=== PATIENT | female | born 1990 | race Caucasian/White ===

== ENCOUNTER 2024-08-24 13:33 | Inpatient (IN) | payer BC, SELFPAY ==
[2024-08-24 11:22] VITALS: BP 133/92
--- NOTE | 2024-08-24 11:57 | ED.SKININJ ---
HPI-Injury
General
Chief Complaint: Bite
Source: patient
Exam Limitations: none
Time Seen by Provider: 08/24/24 11:31
Nursing documentation reviewed up to this point in time: agreed with
History of Present Illness-Injury
Is this injury a work related problem?: Yes
Is pt an associate of [facility]?: No
Initial Injury comments:
34-year-old female type II diabetic works as a riveting machine operator bitten by a cat 3 days ago increased pain and redness of her right hand up and arm no fever or chill had 5 doses of Augmentin with worsening symptoms patient states she is vaccinated for rabies
cat is being watched for 10 days at the clinic for any symptoms of rabies patient is updated on her tetanus
Past History
Past History
ED Past Medical History: HTN, NIDDM and Other (Chronic neck pain ( herniated cervical disc), asthma, RSD, tachycardia); Negative IDDM or MD
ED Past Surgical History: None and Cholecystectomy
Social History
Tobacco: Non-smoker
Alcohol: None
Drug: None
Personal: Single
Living: with family
Employment: Not employed
Family History
Family History: Diabetes
Review of Systems
Review of Systems
All Other Systems: Not applicable
Constitutional: Denies fever or fatigue
Phy Exam
Physical Exam
Physical Exam:
Physical Exam
General: no apparent distress, not acutely ill
Neck: No jaundice
Heart: s1/s2 regular rate and rhythm, no murmur. equal radial pulses.
Lungs: no acute respiratory distress. clear bilaterally
Neuro: alert and oriented. no focal neurological deficits
Skin: no rash
Psychiatric: well kept. interactive and cooperative
Extremities: Redness swelling of the dorsum of the hand streaking up to the forearm decreased flexion
Course
Orders/Labs/Results
Orders:
Orders
08/24/24 11:53
IV Insert/Care/Rem.- Treatment PRN
0.9% Sodium Chloride 1000 ml [Nss] 1,000 ml IV BOLUS
08/24/24 11:54
Vancomycin 1 Gram/200 ml [Vancocin] 1 gram in 200 ml IV NOW
08/24/24 12:06
Ampicillin/Sulbactam 3 G [Unasyn] 3 gm 0.9% Sodium Chloride 100 ml [Nss] 100 ml IV NOW
08/24/24 12:16
Complete Blood Count/With Diff Urgent
Comprehensive Metabolic Panel Urgent
Lactic Acid Q4H
Comment: CANCEL 2nd LACTIC ACID IF 1st LACTIC ACID IS LESS THAN 2
Blood Culture Q30M
TYSON Source: Blood/Venous
Specimen Description:
Blood Culture Q30M
TYSON Source: Blood/Venous
Specimen Description:
08/24/24 12:37
HYDROmorphone [Dilaudid] 0.5 mg IV NOW STA
Wrist, Right 3 Views [CR Wrist - Right Min 3 Views] Urgent
Comment:
Reason For Exam: bite
08/24/24 13:14
Admit/Transfer Patient As Directed
Co-Sign Provider:
Level of Care: Inpatient admission
Assign to:: Medical/Surgical
Physician / Group: [email or web address]
Diagnosis: Infected cat bite wound of Rt hand
Reason for Hospitalization: Infected cat bite wound of Rt hand with spreading cellulitis
Expected length of stay greater than two midnights?: Yes
ELOS- Estimated Length of Stay in days: 3
I certify the patient meets the requirements for IP care: Yes
08/24/24 13:16
Code Status As Directed
Resuscitation Status: Full Code
Abnormal Lab Results
08/24/24
12:16
Hgb 11.1 L g/dL
(12.0-16.0)
Hct 34.5 L %
(37.0-47.0)
MCH 26.1 L pg
(27.0-31.0)
MCHC 32.2 L g/dL
(33.0-37.0)
Glucose 104 H mg/dl
(70-99)
08/24/24 12:16
08/24/24 12:16
Vital Signs
Initial and Last Documented VS:
Initial Vital Signs
Temp Pulse Resp BP Pulse Ox
98.3 F 87 16 133/92 100
08/24/24 11:22 08/24/24 11:22 08/24/24 11:22 08/24/24 11:22 08/24/24 11:22
Last Documented Vital Signs
Temp Pulse Resp BP Pulse Ox
98.3 F 87 16 133/92 100
08/24/24 11:22 08/24/24 11:22 08/24/24 11:22 08/24/24 11:22 08/24/24 11:58
MDM/Problems Addressed
Differential Diagnosis Includes:
Cat bite cellulitis tendon infection abscess
MDM/Problems Addressed:
Cat bite
Chronic conditions affecting care: DM
Acute Exacerbation and/or Progression of Chronic Illness: DM
*Radiology
Radiology exam reviewed: radiology read reviewed
*Pulse Oximetry
SaO2: 100
Oxygen Mode of Delivery: Room air
*Fabric And Textile Factory Worker Interpretation
Rate: Fabric And Textile Factory Worker- N/A
*Critical Care Note
Total Time (30-74mins, 75-104mins- exclusive of procedures): Not Applicable
Update Note
Update Note:
Update looks like an infected cat bite with cellulitis despite appropriate antibiotics will start IV antibiotics with broaden spectrum to cover MRSA, low threshold to admit is also diabetic
ED Attending Note
-
Portions of this chart may have been created with voice recognition software.� Occasional wrong word or��sound alike� substitutions may have occurred due to the inherent limitations of voice recognition software.
Discharge Plan
Departure
Patient Disposition: Admit
Date of Disposition: 08/24/24
Time of Disposition: 12:46
Admit to: Med/Surg
Presentation/result/management discussed w/ accepting MD/DO: Hospitalist
Patient with high blood pressure during this ER visit?: No
Condition: Fair
Discharge Problem:
Pasteurella cellulitis due to cat bite
Interventions
Interventions:
*Risk Screen - Suicide Last Done: 08/24/24 11:49
*General Assessment Last Done: 08/24/24 11:49
*Neglect/Abuse Screening Last Done: 08/24/24 11:49
*ED- Fall Risk Assessment Last Done: 08/24/24 11:49
ED-Skin Assessment Last Done: 08/24/24 11:49
[2024-08-24 12:04] VITALS: BMI 37.8
[2024-08-24] MEDS: NSS 1000 IV (12:16)
[2024-08-24] MEDS: UNASYN IV ×3 (12:22→23:12)
[2024-08-24 12:34] LABS: % Basophils 0.5 % (0-2); % Eosinophils 1.7 % (0-6); % Immature Granulocytes 0.3 % (0-0.5); % Lymphocytes 20.6 % (20.5-51.1); % Neutrophils 69.9 % (42.2-75.2); Absolute Eosinophils 0.1 10^3/uL (0-0.7); Absolute Lymphocytes 1.3 10^3/uL (1.2-3.4); Absolute Monocytes 0.5 10^3/uL (0.1-0.6); Absolute Neutrophils 4.5 10^3/uL (1.4-6.5); Hematocrit 34.5 % (37.0-47.0); Hemoglobin 11.1 g/dL (12.0-16.0); Mean Corp Hgb Conc. 32.2 g/dL (33.0-37.0); Mean Corpuscular Hgb 26.1 pg (27.0-31.0); Nucleated Red Blood Cells % 0 %; Platelet Count 208 10^3/uL (130-400); Red Blood Cell Count 4.26 10^6/uL (4.20-5.40); White Blood Cell Count 6.4 10^3/uL (4.8-10.8)
[2024-08-24 12:44] LABS: Lactic Acid 0.7 mmol/L (0.7-2.0)
[2024-08-24 12:55] LABS: ALT (SGPT) 22 U/L (0-35); AST (SGOT) 22 U/L (14-36); Albumin 4.3 g/dl (3.5-5.0); Alkaline Phosphatase 93 U/L (38-126); Blood Urea Nitrogen 11 mg/dl (7-17); Carbon Dioxide 25 mmol/L (22-30); Chloride 106 mmol/L (98-107); Estimated Creatinine Clearance > 125 ml/min; Glucose 104 mg/dl (70-99); Sodium 139 mmol/L (135-145); Total Bilirubin 0.5 mg/dl (0.2-1.3); Total Protein 7.6 g/dl (6.3-8.2); eGFR > 60.00
[2024-08-24] MEDS: VANCOCIN 200 IV ×3 (12:57→21:27)
[2024-08-24] MEDS: DILAUDID 0.5 MG IV (13:00)
--- NOTE | 2024-08-24 13:02 | HPS.HSE ---
Addendum entered and electronically signed by Lisandro Garcia MD 08/24/24 14:19:
XR Rt hand and wrist
1. Severe cellulitis throughout the dorsal and ulnar side of the right hand.
2. No radiographic evidence for radiopaque soft tissue foreign body, acute osteomyelitis, or acute fracture.
Original Note:
Family Physician
-
Family Physician: Vignesh Yi
Chief Complaint
-
cat bile wound
History of Present Illness
34F diabetic Office Clin Asst HX , Rt hand dominant HTN, , Chronic neck pain ( herniated cervical disc), asthma, RSD, tachycardia pw
bitten by a cat 3 days ago increased pain and redness of her right hand up and arm no fever or chill despite 5 doses of Augmentin. came to ER with worsening symptoms patient states
- vaccinated for rabies cat is being watched for 10 days at the clinic for any symptoms of rabies
- patient is updated on her tetanus
Medical History
Past Medical History
Past Medical History: Reports Asthma, HTN, NIDDM (prediabetic ? ) and Other (Chronic neck pain ( herniated cervical disc), RSD )
Past Surgical History: Reports None
Social History
Tobacco: Non-smoker
Alcohol: Occasional
Employment: Employed ([employer] )
Family History
Family History: Not pertinent
Allergies / Home Medications
Allergies reflects when Allergies were last updated in [employer].
Home Medications with original date entered in [employer]
Allergy/Medication List:
Allergies
Allergy/AdvReac Type Severity Reaction Status Date / Time
loperamide Allergy Severe Shortness Verified 08/24/24 11:26
of Breath
Home Medications
gabapentin 300 mg capsule 300 mg PO TID 09/10/11
tizanidine 2 mg tablet (Zanaflex) 4 mg PO Q8HPRN PRN CRPS 03/21/12
metoprolol succinate 100 mg tablet,extended release 24 hr 100 mg PO DAILY 06/07/12
duloxetine 60 mg capsule,delayed release 60 mg PO HS 08/26/13
nortriptyline 50 mg capsule 50 mg PO HS 08/26/13
omeprazole 40 mg capsule,delayed release 40 mg PO BID 08/26/13
folic acid 1 mg tablet 1 mg PO DAILY 11/30/16
ondansetron 4 mg disintegrating tablet 4 mg PO TIDPRN PRN nausea/vomiting #14 tabs 11/30/16
oxycodone 5 mg tablet 5 mg PO Q4HPRN PRN pain 11/30/16
Review of Systems
-
Constitutional: Reports No Symptoms
EENT: Reports No Symptoms
Respiratory: Reports No Symptoms
Cardiac: Reports No Symptoms
Abdomen/GI: Reports No Symptoms
: Reports No Symptoms
Musculoskeletal: Reports See HPI
Skin: Reports No Symptoms
Neurological: Reports No Symptoms
Endocrine: Reports No Symptoms
Hematologic/Lymphatic: Reports No Symptoms
Psych: Reports No Symptoms
Physical Exam
Vital Signs
Vital Signs
Temp Pulse Resp BP Pulse Ox
98.3 F 87 16 133/92 100
08/24/24 11:22 08/24/24 11:22 08/24/24 11:22 08/24/24 11:22 08/24/24 11:58
Physical Exam
General: Well Developed, Well Nourished and No Apparent Distress
HEENT: NormoCephalic, Moist mucous membranes and Atraumatic
Respiratory: Clear
Cardiac: S1/S2 and Regular Rhythm; No Murmur or Rub
GI: Soft, Non Tender, Non Distended and Normal Bowel Sounds; No Organomegaly
Rectal: Deferred by Provider
Skin: No Rash
Neuro: Nonfocal/grossly intact
Laboratory Results
-
08/24/24 12:16
08/24/24 12:16
Laboratory Results
Lactic Acid Cancelled 08/24/24 16:00
Total Bilirubin 0.5 mg/dl (0.2-1.3) 08/24/24 12:16
AST 22 U/L (14-36) 08/24/24 12:16
ALT 22 U/L (0-35) 08/24/24 12:16
Alkaline Phosphatase 93 U/L (38-126) 08/24/24 12:16
Data Reviewed
-
Diagnostic Radiology: Other (pending hand / wrist XR )
Lab Data: Labs Reviewed by me
Impression/Plan
-
Vital Signs
Temp Pulse Resp BP Pulse Ox
98.3 F 87 16 133/92 100
08/24/24 11:22 08/24/24 11:22 08/24/24 11:22 08/24/24 11:22 08/24/24 11:58
08/24/24
11:22
Temp 98.3 F
Relevant Data
07/21/21 08/24/24
14:49 12:16
WBC 6.4
Hgb 11.1 L 11.1 L
Creatinine 0.6
eGFR > 60.00
Pending Wrist and hand XR
ASSESSMENT & PLAN
Pending Rx reconciliation
Infected Cat bite wound at knuckle of dominant Rt hand
- pending XR Rt hand
- DC Augmentin for now
- s/p first dose on Vancomycin at ER - to be cont
- agree with IV Unasyn alone for now
- f/u BCx and clinical response
- Tylenol PRN
- c/w RADIOLOGY TEACHER Oxycodone
DMT2
- c/w metformin
- add ISS low
Benign HTN
Tachycardia HX
- on RADIOLOGY TEACHER Metoprolol
Depression
- on Duloxetine
Chr neck pain
Herniated cervical disc
HX RSD
- on Gabapentin
- on chr Oxycodone PRN
- on Tizanidine PRN and HS
Class II Obesity with BMI 37
- affect all aspects of life
DVT Px: LMWH
Full code
IP MS
[2024-08-24 14:38] VITALS: BP 128/85; BMI 38.7
--- NOTE | 2024-08-24 15:09 | PHA.VAN.IN ---
Assessment
- Assessment
Renal Function: Appears similar to baseline
Maximum Temperature: 98.3
Minimum Temperature: 97.6
Concomitant Antimicrobials: Ampicillin/Sulbactam
AUC Dosing Plan
- Dosing Variables
Dosing Weight (kg): 102.2
Dosing CrCl (ml/min): 125
Vd coefficient (L/kg): 0.6
- Empiric Dosing
Initial / Loading Dose: Total 2000mg on 08/24
Maintenance Regimen: 1000mg Q8H
Estimated AUC (mcg*h/mL): 477
Estimated Peak (mcg*h/mL): 28.2
Estimated Trough (mcg/ml): 13.2
Estimated Half Life (H): 6.4
- Monitoring
No levels ordered at this time: Consider level in next few days
Pharmacokinetics Vancomycin I
- -
Patient Age: 34
Patient Sex: Female
Vancomycin Day #: 1
Indication: Skin And Soft Tissue
Requesting Provider: Dr. Garcia
Pertinent Antimicrobial Allergies:
none
Height / Weight:
Height 5 ft 4 in
Actual Weight 102.24 kg
Pertinent Past Medical History: Diabetes, Obesity
- Vital Signs / Lab Results
Temp Pulse Resp BP Pulse Ox
97.6 F 77 14 128/85 100
08/24/24 14:38 08/24/24 14:38 08/24/24 14:38 08/24/24 14:38 08/24/24 14:38
Lab Results - Hematology
08/24/24
12:16
WBC 6.4
Lab Results - Chemistry
08/24/24
12:16
BUN 11
Creatinine 0.6
Estimated Creat Clear > 125
Albumin 4.3
08/24/24 08/24/24
12:16 16:00
Lactic Acid 0.7 Cancelled
[2024-08-24 17:17] LABS: Glucose - Point of Care 48 mg/dl (70-99)
[2024-08-24 17:33] LABS: Glucose - Point of Care 89 mg/dl (70-99)
[2024-08-24] MEDS: LOVENOX 40 MG SC (17:44)
[2024-08-24 18:25] LABS: Glucose - Point of Care 142 mg/dl (70-99)
[2024-08-24] MEDS: GLUCOPHAGE XR EXTENDED RELEASE 500 MG PO (18:25)
[2024-08-24] MEDS: TYLENOL 650 MG PO (19:25)
[2024-08-24 19:47] LABS: Glucose - Point of Care 99 mg/dl (70-99)
[2024-08-24] MEDS: ALTACE 2.5 MG PO (21:23)
[2024-08-24] MEDS: ZANAFLEX 4 MG PO (21:24)
[2024-08-24] MEDS: PAMELOR 25 MG PO (21:24)
[2024-08-24] MEDS: NEURONTIN 600 MG PO (21:24)
[2024-08-24] MEDS: FLUSH (NSS) 1 FLUSH IV (21:28)
[2024-08-24 21:35] LABS: Glucose - Point of Care 91 mg/dl (70-99)
[2024-08-24 23:26] VITALS: BP 131/76
[2024-08-25 03:33] LABS: Glucose - Point of Care 104 mg/dl (70-99)
[2024-08-25] MEDS: VANCOCIN 200 IV (05:41)
[2024-08-25] MEDS: UNASYN IV ×4 (05:41→23:33)
[2024-08-25 07:05] VITALS: BP 138/78
[2024-08-25 07:09] LABS: Hematocrit 31.5 % (37.0-47.0); Hemoglobin 10.5 g/dL (12.0-16.0); Mean Corp Hgb Conc. 33.3 g/dL (33.0-37.0); Mean Corpuscular Hgb 26.3 pg (27.0-31.0); Mean Corpuscular Volume 78.9 fL (81.0-99.0); Mean Platelet Volume 10.1 fL (7.4-10.4); Platelet Count 187 10^3/uL (130-400); Red Blood Cell Count 3.99 10^6/uL (4.20-5.40); White Blood Cell Count 5.4 10^3/uL (4.8-10.8)
[2024-08-25] MEDS: TOPROL XL 100 MG PO (07:27)
[2024-08-25] MEDS: TYLENOL 650 MG PO (07:29)
[2024-08-25 07:35] LABS: Blood Urea Nitrogen 7 mg/dl (7-17); Calcium 8.4 mg/dl (8.4-10.2); Carbon Dioxide 21 mmol/L (22-30); Chloride 109 mmol/L (98-107); Estimated Creatinine Clearance > 125 ml/min; Glucose 115 mg/dl (70-99); Potassium 3.8 mmol/L (3.5-5.1); Sodium 138 mmol/L (135-145); eGFR > 60.00
[2024-08-25 07:47] LABS: Glucose - Point of Care 115 mg/dl (70-99)
[2024-08-25 08:49] LABS: Glycohemoglobin (HgbA1c) 5.7 % (4.0-5.6)
--- NOTE | 2024-08-25 11:05 | PHA.VAN.FU ---
Vancomycin Assessment / Plan
- Assessment
Renal Function: Stable
WBC's are: WNL
In the past 24 hrs, patient has been: Afebrile
Concomitant Antimicrobials: ampicillin/sulbactam
- Dosing Plan
Continue: vancomycin 1000 mg q8h - first dose 08/240 (after 2000 mg split LD)
- Monitoring Plan
Peak Level: 08/26 0100 - after 4th maint dose
Trough Level: 08/26 0530
- Follow Up
Pharmacy will continue to follow.
Vancomycin Follow UP
- -
Patient Age: 34
Patient Sex: Female
Vancomycin Day #: 1
Indication: Skin And Soft Tissue
Requesting Provider: Dr. Garcia
Pertinent Antimicrobial Allergies:
none
Height / Weight:
Height 5 ft 4 in
Actual Weight 102.24 kg
Pertinent Past Medical History: Diabetes, Obesity
- Vital Signs / Lab Results
Temp Pulse Resp BP Pulse Ox
98.1 F 58 16 138/78 98
08/25/24 07:05 08/25/24 07:27 08/25/24 07:05 08/25/24 07:27 08/25/24 07:05
Lab Results - Hematology
08/24/24 08/25/24
12:16 06:37
WBC 6.4 5.4
Lab Results - Chemistry
08/24/24 08/25/24
12:16 06:37
BUN 11 7
Creatinine 0.6 0.5 L
Estimated Creat Clear > 125 > 125
Albumin 4.3
08/24/24 08/24/24
12:16 16:00
Lactic Acid 0.7 Cancelled
--- NOTE | 2024-08-25 11:26 | W.PN.HOSP.TC ---
Today's Communication/Plan
-
CT scan of Rt wrist and hand
ID consult
Assessment / Plan
Assessment / Plan
Infected Cat bite wound at knuckle of dominant Rt hand
- will order CT scan of Rt hand and wrist
prior to doing scan, will check serum
- DC Augmentin for now
- s/p first dose on Vancomycin at ER - to be cont
- continue IV Unasyn
consult ID
- f/u BCx and clinical response
- Tylenol PRN
- c/w WORD PROCESSOR Oxycodone
DMT2
- c/w metformin
- add ISS low
Benign HTN
Tachycardia HX
- on WORD PROCESSOR Metoprolol
Depression
- on Duloxetine
Chr neck pain
Herniated cervical disc
HX RSD
- on Gabapentin
- on chr Oxycodone PRN
- on Tizanidine PRN and HS
Class II Obesity with BMI 37
- affect all aspects of life
DVT Px: LMWH
Full code
IP MS
Anticipated Discharge: 24 - 48 hours
Subjective/Interval History
-
Date of Service: August 25, 2024
Rt hand is less swollen since admission, but swelling remains significant
Objective Data
-
Labs:
Laboratory Results
08/25/24
06:37
WBC 5.4
Hgb 10.5 L
Hct 31.5 L
Plt Count 187
Sodium 138
Potassium 3.8
Chloride 109 H
Carbon Dioxide 21 L
BUN 7
Creatinine 0.5 L
Glucose 115 H
Calcium 8.4
Vital Signs:
Vital Signs
Temp Pulse Resp BP Pulse Ox
98.1 F 58 16 138/78 98
08/25/24 07:05 08/25/24 07:27 08/25/24 07:05 08/25/24 07:27 08/25/24 07:05
I&O
08/24/24 08/25/24 08/26/24
06:59 06:59 06:59
Intake Total 780 / 780
Balance 780 / 780
Review of Systems
-
History Source: Patient and Coordinated Provider (Pt examined with JUSTIN Lorenzana in room)
Constitutional: Denies Fever
EENT: Reports No Symptoms Reported
Respiratory: Reports No Symptoms
Cardiac: Reports No Symptoms
Abdomen/GI: Reports No Symptoms
Genitourinary: Reports No Symptoms
Musculoskeletal: Reports Joint Swelling (rt wrist and hand swelling and redness)
Skin: Reports Rash
Physical Exam
-
General: Well Developed, Well Nourished, No Apparent Distress and Morbidly Obese
HEENT: Normocephalic, Atraumatic and Moist Mucous Membranes
Respiratory: Clear to Auscultation; Negative Wheezes, Rales or Rhonchi
Cardiac: Regular Rhythm and S1/S2
Musculoskeletal: Other (rt wrist and hand with swelling and redness)
Skin: Warm and Rash
[2024-08-25 11:54] LABS: Glucose - Point of Care 97 mg/dl (70-99)
--- NOTE | 2024-08-25 12:42 | CM ---
Met with patient to obtain information for assessment. Patient stated that she lives with her family in a split level home, 12 steps to the main level. She described herself as independent with her ADLs, personal care, dressing and bathing. She can
cook, clean, do errands and inside account representative. She drives and can get to her own appointments and does all of her own shopping.
Patient's pharmacy is, [facility] in [place].
Plan: Case management will continue to follow and assist with discharge planning. Will watch for ABX needs.
[2024-08-25 13:26] LABS: HCG, Serum Qualitative Screen Negative
--- NOTE | 2024-08-25 13:36 | CON.ID ---
Consultation
-
Date/Time Consultation Requested: August 25, 2024 1047
Date/Time Consultation Performed: August 25, 2024 1340
Requesting Provider: Dr. Fran Madrigal
Performing Provider: Dr. Yael Zhang
Reason for Consultation: Cat bite cellulitis
Chief Complaint / Past History
Chief Complaint
Cat bite, right hand swelling
History of Present Illness
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 On Sunday, someone brought stray cat to the vet to be fixed.
However the cat bit her right hand twice. She immediately went to the ER and received Augmentin. However right hand continued to get bigger, the redness extended up to her forearm. She therefore came here to the hospital. She is up-to-date with
her tetanus vaccine and rabies vaccines. The cat is being watched for 10 days. No fevers or chills. X-ray shows severe cellulitis. She is currently on Unasyn and vancomycin. She reports that the erythema has improved. The previous 2 puncture
wounds were draining pus which now has subsided.
Past History
Additional Past Medical History:
DM2
HTN
Herniated cervical disc
Depression
Asthma
RSD
Allergy History:
loperamide Allergy (Severe, Verified 08/24/24 11:26)
Shortness of Breath
Medications Reviewed: Yes
Current Antibiotics:
Unasyn
Vancomycin
Social History
Tobacco: Non-Smoker
Alcohol: None
Drug: None
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
Family History
Family History: Not Pertinent
Review of Systems
Review of Systems
General: Negative Fever, Chills or Change in Appetite
HEENT: Negative Stiff Neck, Sinus Problems or Headache
Respiratory: Negative Dyspnea or Cough
Gasteroenterology: Negative Nausea, Vomiting or Diarrhea
Genital / Urological: Negative Dysuria or Flank Pain
Neurological: Negative Dizziness
All systems: All other systems were reviewed and were negative
Vital Signs
Temp Pulse Resp BP Pulse Ox
98.1 F 58 16 138/78 98
08/25/24 07:05 08/25/24 07:27 08/25/24 07:05 08/25/24 07:27 08/25/24 07:05
Physical Exam
Physical Exam
Constitutional: No Acute Distress and Comfortable
Eyes: No Conjunctival Hemorrhage and Sclera Anicteric
Cardiovascular: Regular Rate and S1/S2
Pulmonary: Clear
Gastrointestinal: Soft, Non Tender, Non Distended and Normal Bowel Sounds
Genito-Urinary: Negative CVA Tenderness
Extremities: Other (Right hand 2- 3+ edema, puncture wounds over mid MCP's, no drainage, + erythema over MCP/dorsum of hand; forearm erythema resolved)
Neurological: AO x 3
Lab / Diagnostic Study Results
08/25/24 06:37
08/25/24 06:37
Abs Immat Gran (auto) 0.0 10^3/uL (0-0.05) 08/24/24 12:16
Absolute Neuts (auto) 4.5 10^3/uL (1.4-6.5) 08/24/24 12:16
Absolute Lymphs (auto) 1.3 10^3/uL (1.2-3.4) 08/24/24 12:16
Absolute Monos (auto) 0.5 10^3/uL (0.1-0.6) 08/24/24 12:16
Absolute Basos (auto) 0.0 10^3/uL (0-0.2) 08/24/24 12:16
Immature Gran % 0.3 % (0-0.5) 08/24/24 12:16
Neutrophils % 69.9 % (42.2-75.2) 08/24/24 12:16
Lymphocytes % 20.6 % (20.5-51.1) 08/24/24 12:16
Monocytes % 7.0 % (1.7-9.3) 08/24/24 12:16
Eosinophils % 1.7 % (0-6) 08/24/24 12:16
Basophils % 0.5 % (0-2) 08/24/24 12:16
Lactic Acid Cancelled 08/24/24 16:00
Microbiology Results
Micro:
08/24/24 12:16 Blood Culture - Preliminary
Blood/Venous No Growth in 24 hours- Final report to follow
08/24/24 12:16 Blood Culture - Preliminary
Blood/Venous No Growth in 24 hours- Final report to follow
08/24/24 Wrist XRAY: Severe cellulitis throughout the dorsal and ulnar side of the right hand. No radiographic evidence for radiopaque soft tissue foreign body, acute osteomyelitis, or acute fracture.
Assessment / Plan
# Right hand cat bite cellulitis
- up to date with Td and rabies vaccine
- semi-feral cat being observed for 10d [facility]
- For CT hand per hospitalist
- Continue Unasyn
- DC Vancomycin
- Elevate RUE
[2024-08-25] MEDS: VANCOCIN IV (14:24)
[2024-08-25 15:00] VITALS: BP 139/81
[2024-08-25 16:30] LABS: Glucose - Point of Care 94 mg/dl (70-99)
[2024-08-25] MEDS: GLUCOPHAGE XR EXTENDED RELEASE 500 MG PO (17:34)
[2024-08-25] MEDS: LOVENOX 40 MG SC (17:35)
[2024-08-25 21:13] LABS: Glucose - Point of Care 105 mg/dl (70-99)
[2024-08-25] MEDS: VISBIOME 1 CAP PO (21:13)
[2024-08-25] MEDS: ALTACE 2.5 MG PO (21:13)
[2024-08-25] MEDS: PAMELOR 25 MG PO (21:14)
[2024-08-25] MEDS: ZANAFLEX 4 MG PO (21:14)
[2024-08-25] MEDS: NEURONTIN 600 MG PO (21:14)
[2024-08-25] MEDS: ZOLOFT 100 MG PO (21:47)
[2024-08-25 23:15] VITALS: BP 127/74
[2024-08-25] MEDS: FLUSH (NSS) 1 FLUSH IV (23:34)
[2024-08-26] MEDS: UNASYN IV ×4 (05:41→22:43)
[2024-08-26 07:05] VITALS: BP 143/94
[2024-08-26 07:10] LABS: % Basophils 0.6 % (0-2); % Eosinophils 3.1 % (0-6); % Immature Granulocytes 0.4 % (0-0.5); % Lymphocytes 28.9 % (20.5-51.1); % Monocytes 6.6 % (1.7-9.3); % Neutrophils 60.4 % (42.2-75.2); Absolute Eosinophils 0.2 10^3/uL (0-0.7); Absolute Lymphocytes 1.5 10^3/uL (1.2-3.4); Absolute Monocytes 0.3 10^3/uL (0.1-0.6); Absolute Neutrophils 3.1 10^3/uL (1.4-6.5); Hematocrit 30.5 % (37.0-47.0); Hemoglobin 9.9 g/dL (12.0-16.0); Mean Corp Hgb Conc. 32.5 g/dL (33.0-37.0); Mean Corpuscular Hgb 25.8 pg (27.0-31.0); Mean Corpuscular Volume 79.6 fL (81.0-99.0); Mean Platelet Volume 10.2 fL (7.4-10.4); Nucleated Red Blood Cells % 0 %; Platelet Count 187 10^3/uL (130-400); Red Blood Cell Count 3.83 10^6/uL (4.20-5.40); Red Cell Dist. Width 13.8 % (11.5-14.5); White Blood Cell Count 5.2 10^3/uL (4.8-10.8)
[2024-08-26 07:30] LABS: Erythrocyte Sed Rate 45 mm/hour (0-20)
[2024-08-26 07:41] LABS: Glucose - Point of Care 100 mg/dl (70-99)
[2024-08-26 07:56] LABS: ALT (SGPT) 20 U/L (0-35); AST (SGOT) 22 U/L (14-36); Albumin 3.7 g/dl (3.5-5.0); Alkaline Phosphatase 69 U/L (38-126); Blood Urea Nitrogen 9 mg/dl (7-17); Calcium 9.1 mg/dl (8.4-10.2); Carbon Dioxide 26 mmol/L (22-30); Chloride 108 mmol/L (98-107); Estimated Creatinine Clearance > 125 ml/min; Glucose 92 mg/dl (70-99); Iron 48 ug/dl (37-170); Potassium 3.8 mmol/L (3.5-5.1); Sodium 139 mmol/L (135-145); Total Bilirubin 0.3 mg/dl (0.2-1.3); Total Protein 6.6 g/dl (6.3-8.2); eGFR > 60.00
[2024-08-26 08:05] LABS: Percent Saturation 13 % (20-50); Total Iron Binding Capacity 366 ug/dl (265-497)
[2024-08-26] MEDS: VISBIOME 1 CAP PO (08:12)
[2024-08-26] MEDS: TOPROL XL 100 MG PO (08:12)
[2024-08-26 08:13] LABS: Vancomycin Trough < 5.0 ug/ml (5-20)
[2024-08-26 08:28] LABS: Ferritin 30.7 ng/ml (6.24-137)
[2024-08-26 09:00] LABS: Folate 7.4 ng/ml (2.76-20); Vitamin B12 534 pg/ml (239-931)
--- NOTE | 2024-08-26 10:29 | W.PN.ID1 ---
Date of Service
Date of Service: August 26, 2024
Today's Communication
- At time of dc, resume Augmentin 875mg po bid x 10 more days.
Assessment / Plan
# Right hand cat bite severe cellulitis, improving
- up to date with Td and rabies vaccine
- semi-feral cat being observed for 10d at [facility]
- CT: no osteo/abscess/synovitis
- Continue Unasyn
- At time of dc, resume Augmentin 875mg po bid x 10 more days.
Chief Complaint
-: Cellulitis
Subjective / Review of Systems
Hand less swollen.
Vital Signs / Physical Exam
Vital Signs
Vital Signs
Temp Pulse Resp BP Pulse Ox
97.8 F 81 16 143/94 97
08/26/24 07:05 08/26/24 07:05 08/26/24 07:05 08/26/24 07:05 08/26/24 07:05
Physical Exam
Constitutional: No Acute Distress and Comfortable
Cardiovascular: Regular Rate and S1/S2
Pulmonary: Clear
Gastrointestinal: Soft, Non Tender and Non Distended
Extremities: Other (Right hand edema and erythema decreasing. Puncture wounds no drainage.)
Neurological: AO x 3
Objective Data
Lab Data
Lab Results
08/26/24 06:29
08/26/24 06:29
ESR 45 mm/hour (0-20) H 08/26/24 06:29
Estimated Creat Clear > 125 ml/min 08/26/24 06:29
Lactic Acid Cancelled 08/24/24 16:00
Total Bilirubin 0.3 mg/dl (0.2-1.3) 08/26/24 06:29
AST 22 U/L (14-36) 08/26/24 06:29
ALT 20 U/L (0-35) 08/26/24 06:29
Alkaline Phosphatase 69 U/L (38-126) 08/26/24 06:29
Most recent labs reviewed.
Micro Results:
08/24/24 12:16 Blood Culture - Preliminary
Blood/Venous No Growth in 24 hours- Final report to follow
08/24/24 12:16 Blood Culture - Preliminary
Blood/Venous No Growth in 24 hours- Final report to follow
08/24/24 Wrist XRAY: Severe cellulitis throughout the dorsal and ulnar side of the right hand. No radiographic evidence for radiopaque soft tissue foreign body, acute osteomyelitis, or acute fracture.
08/25/24 CT RUE: Cellulitis of the right hand and wrist. No CT evidence for an abscess. No significant joint effusion or synovitis.
[2024-08-26 11:49] LABS: Glucose - Point of Care 76 mg/dl (70-99)
--- NOTE | 2024-08-26 14:42 | W.PN.HOSP.TC ---
Today's Communication/Plan
-
continue current dose of Unasyn, potential dc tomorrow
Assessment / Plan
Assessment / Plan
Infected Cat bite wound at knuckle of dominant Rt hand
- will order CT scan of Rt hand and wrist
prior to doing scan, will check serum
- DC Augmentin for now
- s/p first dose on Vancomycin at ER - stopped
- continue IV Unasyn
with marked improvement, potential dc next 24 hrs
consulted ID, input appreciated
- f/u BCx and clinical response
- Tylenol PRN
- has not used Oxycodone, will stop
DMT2
- c/w metformin
- add ISS low
Hga1c 5.7%
Benign HTN
Tachycardia HX
- on SUPERVISOR INSTRUMENT MAINTENANCE Metoprolol
Depression
- on Duloxetine
Chr neck pain
Herniated cervical disc
HX RSD
- on Gabapentin
- on Tizanidine PRN and HS
Class II Obesity with BMI 37
- affect all aspects of life
DVT Px: LMWH
Full code
IP MS
Anticipated Discharge: Within 24 hours
Subjective/Interval History
-
Date of Service: August 26, 2024
Hand is doing better
Objective Data
-
Labs:
Laboratory Results
08/26/24
06:29
WBC 5.2
Hgb 9.9 L
Hct 30.5 L
Plt Count 187
Sodium 139
Potassium 3.8
Chloride 108 H
Carbon Dioxide 26
BUN 9
Creatinine 0.6
Glucose 92
Calcium 9.1
Total Bilirubin 0.3
AST 22
ALT 20
Alkaline Phosphatase 69
Vital Signs:
Vital Signs
Temp Pulse Resp BP Pulse Ox
97.8 F 81 16 143/94 97
08/26/24 07:05 08/26/24 07:05 08/26/24 07:05 08/26/24 07:05 08/26/24 08:20
I&O
08/25/24 08/26/24 08/27/24
06:59 06:59 06:59
Intake Total 780 / 780 340 / 340
Balance 780 / 780 340 / 340
Review of Systems
-
History Source: Patient and Coordinated Provider (Pt examined with JUSTIN Lorenzana in room)
Constitutional: Denies Fever
EENT: Reports No Symptoms Reported
Respiratory: Reports No Symptoms
Cardiac: Reports No Symptoms
Abdomen/GI: Reports No Symptoms
Genitourinary: Reports No Symptoms
Musculoskeletal: Reports Joint Swelling (rt wrist and hand swelling and redness significantly improved)
Skin: Reports Rash
Physical Exam
-
General: Well Developed, Well Nourished, No Apparent Distress and Morbidly Obese
HEENT: Normocephalic, Atraumatic and Moist Mucous Membranes
Respiratory: Clear to Auscultation; Negative Wheezes, Rales or Rhonchi
Cardiac: Regular Rhythm and S1/S2
Musculoskeletal: Other (rt wrist and hand with swelling and redness markedly reduced, but not resolved)
Skin: Warm and Rash
[2024-08-26 15:00] VITALS: BP 143/90
[2024-08-26] MEDS: TYLENOL 650 MG PO ×2 (16:17→20:26)
[2024-08-26 16:23] LABS: Glucose - Point of Care 68 mg/dl (70-99)
[2024-08-26 16:44] LABS: Glucose - Point of Care 82 mg/dl (70-99)
[2024-08-26] MEDS: LOVENOX 40 MG SC (17:10)
[2024-08-26 18:40] LABS: Glucose - Point of Care 112 mg/dl (70-99)
[2024-08-26] MEDS: GLUCOPHAGE XR EXTENDED RELEASE 500 MG PO (19:42)
[2024-08-26 20:42] LABS: Glucose - Point of Care 87 mg/dl (70-99)
[2024-08-26] MEDS: NEURONTIN 600 MG PO (22:41)
[2024-08-26] MEDS: ZANAFLEX 4 MG PO (22:41)
[2024-08-26] MEDS: ZOLOFT 100 MG PO (22:42)
[2024-08-26] MEDS: PAMELOR 25 MG PO (22:42)
[2024-08-26] MEDS: ALTACE 2.5 MG PO (22:43)
[2024-08-26 23:16] VITALS: BP 143/88
[2024-08-27 03:00] LABS: Glucose - Point of Care 97 mg/dl (70-99)
[2024-08-27] MEDS: UNASYN IV ×2 (05:13→11:15)
[2024-08-27 07:27] LABS: Glucose - Point of Care 93 mg/dl (70-99)
[2024-08-27 07:30] VITALS: BP 120/78
[2024-08-27] MEDS: TOPROL XL 100 MG PO (08:34)
[2024-08-27] MEDS: VISBIOME 1 CAP PO (08:34)
--- NOTE | 2024-08-27 08:35 | W.PN.HOSP.TC ---
Today's Communication/Plan
-
dc to home
Assessment / Plan
Assessment / Plan
Infected Cat bite wound at knuckle of dominant Rt hand
- CT scan of Rt hand and wrist with contrast: Cellulitis of the right hand and wrist. No CT evidence for an abscess.
Neg serum
- Resume Augmentin on dc
- s/p first dose on Vancomycin at ER - stopped
- continue IV Unasyn for 1 more dose today, then stop
with marked improvement, will dc
consulted ID, input appreciated, rec 10 more days of Augmentin
- f/u BCx and clinical response
- Tylenol PRN
- has not used Oxycodone, will stop
DMT2
- c/w metformin
- add ISS low
Hga1c 5.7%
Benign HTN
Tachycardia HX
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
Depression
- on Duloxetine
Chr neck pain
Herniated cervical disc
HX RSD
- on Gabapentin
- on Tizanidine PRN and HS
Class II Obesity with BMI 37
- affect all aspects of life
DVT Px: LMWH
Full code
IP MS
dc to home
see dictated note
Anticipated Discharge: Today
Subjective/Interval History
-
Date of Service: August 27, 2024
pain and swelling of rt hand markedly lessened
Objective Data
-
Vital Signs:
Vital Signs
Temp Pulse Resp BP Pulse Ox
98.1 F 75 18 120/78 93
08/27/24 07:30 08/27/24 07:30 08/27/24 07:30 08/27/24 07:30 08/27/24 07:30
I&O
08/26/24 08/27/24 08/28/24
06:59 06:59 06:59
Intake Total 340 / 340 1440 / 1440
Balance 340 / 340 1440 / 1440
Review of Systems
-
History Source: Patient and Coordinated Provider (Pt examined with JUSTIN Lorenzana in room)
Constitutional: Denies Fever
EENT: Reports No Symptoms Reported
Respiratory: Reports No Symptoms
Cardiac: Reports No Symptoms
Abdomen/GI: Reports No Symptoms
Genitourinary: Reports No Symptoms
Musculoskeletal: Reports Joint Swelling (rt wrist and hand swelling and redness significantly improved, probably 90% better)
Skin: Reports Rash
Physical Exam
-
General: Well Developed, Well Nourished, No Apparent Distress and Morbidly Obese
HEENT: Normocephalic, Atraumatic and Moist Mucous Membranes
Respiratory: Clear to Auscultation; Negative Wheezes, Rales or Rhonchi
Cardiac: Regular Rhythm and S1/S2
Musculoskeletal: Other (rt wrist and hand with swelling and redness markedly reduced, but not resolved)
Skin: Warm and Rash
--- NOTE | 2024-08-27 10:47 | W.PN.ID1 ---
Date of Service
Date of Service: August 27, 2024
Today's Communication
Can transition Unasyn to Augmentin 875mg po bid x 10 more days.
Assessment / Plan
# Right hand cat bite severe cellulitis, continues to imprve
- up to date with Td and rabies vaccine
- semi-feral cat being observed for 10d at [facility]
- CT: no osteo/abscess/synovitis
- Can transition Unasyn to Augmentin 875mg po bid x 10 more days.
Chief Complaint
-: Cellulitis
Subjective / Review of Systems
hand continues to improve.
Vital Signs / Physical Exam
Vital Signs
Vital Signs
Temp Pulse Resp BP Pulse Ox
98.1 F 75 18 120/78 93
08/27/24 07:30 08/27/24 07:30 08/27/24 07:30 08/27/24 07:30 08/27/24 08:20
Physical Exam
Constitutional: No Acute Distress and Comfortable
Cardiovascular: Regular Rate and S1/S2
Pulmonary: Clear
Gastrointestinal: Soft, Non Tender and Non Distended
Extremities: Other (Right hand edema and erythema continues to decrease. Puncture wounds no drainage.)
Neurological: AO x 3
Objective Data
Lab Data
Lab Results
08/26/24 06:29
08/26/24 06:29
ESR 45 mm/hour (0-20) H 08/26/24 06:29
Estimated Creat Clear > 125 ml/min 08/26/24 06:29
Lactic Acid Cancelled 08/24/24 16:00
Total Bilirubin 0.3 mg/dl (0.2-1.3) 08/26/24 06:29
AST 22 U/L (14-36) 08/26/24 06:29
ALT 20 U/L (0-35) 08/26/24 06:29
Alkaline Phosphatase 69 U/L (38-126) 08/26/24 06:29
Most recent labs reviewed.
Micro Results:
08/24/24 12:16 Blood Culture - Preliminary
Blood/Venous No Growth in 48 hours- Final report to follow
08/24/24 12:16 Blood Culture - Preliminary
Blood/Venous No Growth in 48 hours- Final report to follow
08/24/24 Wrist XRAY: Severe cellulitis throughout the dorsal and ulnar side of the right hand. No radiographic evidence for radiopaque soft tissue foreign body, acute osteomyelitis, or acute fracture.
08/25/24 CT RUE: Cellulitis of the right hand and wrist. No CT evidence for an abscess. No significant joint effusion or synovitis.
Care Review
Plan reviewed with: Physician (Dr. Madrigal)
--- NOTE | 2024-08-28 17:06 | W.DS.TRANS ---
DC Summary - [employer] Program[employer]
-
Discharge Instructions:
Discharge Diagnosis/Procedures Cat Bite cellulitis Rt hand
Diet Diabetic, Carb Controlled
Activity No restrictions
Additional Activity Pt may return to work without restrictions,
other than keep wound site clean and cover with
glove in dirty environment
Driving Restrictions As prior to admission
Bathing Restrictions None
Blood Work consider anemia evaluation
Instructions:
Stand-Alone Forms:
Changes to Home Medications: Yes
Discharge Medications:
DC Medications w/original date entered in [employer]
gabapentin 300 mg capsule 600 mg PO BID Neurological Condition 09/10/11
metoprolol succinate 100 mg tablet,extended release 24 hr 100 mg PO DAILY Blood Pressure 06/07/12
esomeprazole magnesium 20 mg capsule,delayed release (Nexium) 20 mg PO DAILY Gastrointestinal Issue 08/24/24
metformin 500 mg tablet 500 mg PO QPM Diabetes 08/24/24
nortriptyline 25 mg capsule 25 mg PO HS Mental Health/Anxiety 08/24/24
ramipril 2.5 mg capsule 2.5 mg PO HS Blood Pressure 08/24/24
sertraline 100 mg tablet 100 mg PO HS Depression 08/24/24
tizanidine 4 mg tablet 4 mg PO DAILYPRN PRN spasms 08/24/24
tizanidine 4 mg tablet 4 mg PO HS Muscle Spasms 08/24/24
Lactobac/Bifidobac [Visbiome] 1 cap PO DAILY ##0 08/27/24
amoxicillin 875 mg-potassium clavulanate 125 mg tablet 1 tab PO BID #20 tabs 08/27/24
multivitamin with iron 1 tab PO DAILY #30 tabs 08/27/24
Home Medication Changes
extended Augmentin for an additional 10 days
Pending Results: No
== END 2024-08-27 11:59 | disposition home or self-care (01) | DRG 605 ==
LOC: 4 EAST ACU 13:33
PROVIDERS: ADMITTING PHYSICIAN Internal Medicine; ATTENDING PHYSICIAN Internal Medicine; CONSULT PHYSICIAN Internal Medicine Infectious Disease; EMERGENCY PHYSICIAN Emergency Medicine; FAMILY PHYSICIAN Family Medicine
DX: S61.451A Open bite of right hand, initial encounter (principal); L03.113 Cellulitis of right upper limb; B96.89 Other specified bacterial agents as the cause of diseases classified elsewhere; W55.01XA Bitten by cat, initial encounter; E11.9 Type 2 diabetes mellitus without complications; I10 Essential (primary) hypertension; F32.A Depression, unspecified; G89.29 Other chronic pain; Z68.37 Body mass index [BMI] 37.0-37.9, adult; E66.812 Obesity, class 2; D64.9 Anemia, unspecified; J45.909 Unspecified asthma, uncomplicated; M50.20 Other cervical disc displacement, unspecified cervical region
CPT/HCPCS: 73110; 73201; 80048; 80053; 80202; 82607; 82728; 82746; 82962; 83036; 83540; 83550; 83605; 84703; 85025; 85027; 85652; 87040; 96374; 96375; 99284; Q9967

== ENCOUNTER 2025-02-03 21:08 | Emergency (ER) | payer BC, SELFPAY ==
[2025-02-03 21:11] VITALS: BP 152/94
[2025-02-03 21:32] LABS: Hematocrit 33.9 % (37.0-47.0); Hemoglobin 11.0 g/dL (12.0-16.0); Mean Corp Hgb Conc. 32.4 g/dL (33.0-37.0); Mean Corpuscular Volume 78.8 fL (81.0-99.0); Nucleated Red Blood Cells % 0 %; Platelet Count 213 10^3/uL (130-400); Red Cell Dist. Width 15.4 % (11.5-14.5)
[2025-02-03 21:47] LABS: ALT (SGPT) 29 U/L (0-35); AST (SGOT) 32 U/L (14-36); Albumin 4.6 g/dl (3.5-5.0); Alkaline Phosphatase 72 U/L (38-126); Blood Urea Nitrogen 10 mg/dl (7-17); Calcium 9.1 mg/dl (8.4-10.2); Carbon Dioxide 25 mmol/L (22-30); Chloride 105 mmol/L (98-107); Glucose 151 mg/dl (70-99); Potassium 3.7 mmol/L (3.5-5.1); Sodium 136 mmol/L (135-145); Total Protein 8.0 g/dl (6.3-8.2); eGFR > 60.00
[2025-02-03 22:55] VITALS: BP 146/68
[2025-02-03 23:19] VITALS: BMI 40.4
--- NOTE | 2025-02-03 23:20 | ED.GENMED ---
History of Present Illness
General
Chief Complaint: Vaginal Bleeding
Source: patient
Exam Limitations: none
Time Seen by Provider: 02/03/25 22:38
Nursing documentation reviewed up to this point in time: agreed with
History of Present Illness
History of Present Illness:
The patient is a woman whose last menstrual period was December 2024. Patient reports 1 prior miscarriage in the past. Patient reports that over the last 1 to 2 days she has developed very mild vaginal spotting and grew very nervous
due to her prior miscarriage. Patient denies all other complaints. Patient denies any heavy bleeding or cramping.
Past History
Past History
ED Past Medical History: HTN, NIDDM and Other (Chronic neck pain ( herniated cervical disc), asthma, RSD, tachycardia)
ED Past Surgical History: Cholecystectomy
Social History
Tobacco: Non-smoker
Alcohol: None
Drug: None
Personal: Single
Living: with family
Employment: Not employed
Family History
Family History: Diabetes
Review of Systems
Review of Systems
Allergies reviewed?: Yes
All Other Systems: ROS reviewed and negative except as documented in HPI and ROS
Constitutional: Reports no symptoms
EENT: Reports no symptoms
Respiratory: Reports no symptoms
Cardiac: Reports no symptoms
ABD/GI: Reports no symptoms
: Reports bleeding
Musculoskeletal: Reports no symptoms
Skin: Reports no symptoms
Neurological: Reports no symptoms
Endocrine: Reports no symptoms
Hematologic/Lymphatic: Reports no symptoms
Psychiatric: Reports no symptoms
Phy Exam
Physical Exam
Physical Exam:
Physical Exam
General: no apparent distress, not acutely ill. Well and comfortable appearing
Neck: supple. no meningeal signs. normal psoterior pharynx
Heart: s1/s2 regular rate and rhythm, no murmur. equal radial pulses.
Lungs: no acute respiratory distress. clear bilaterally
Abdomen: normal bowel sounds. not tender. no CVAT
Neuro: alert and oriented. no focal neurological deficits
Skin: no rash
Psychiatric: well kept. interactive and cooperative
Extremities: no edema. no calf tenderness. negative homans. good distal pulses
Course
Orders/Labs/Results
Orders:
Orders
02/03/25 21:18
US W Transvaginal Urgent
Reason For Exam: potential miscarraige
02/03/25 21:22
Type+Screen Urgent
Complete Blood Count/With Diff Urgent
Comprehensive Metabolic Panel Urgent
HCG, Beta Quantitative [Beta HCG Quantitative] Urgent
Is this a screen?: No
02/03/25 23:19
Urinalysis Reflex To Culture Urgent
Date Specimen was Collected: 02/03/25
Time Specimen was Collected: 23:13
Urine Microscopic Reflex Cult Urgent
Urine Culture Urgent
TYSON Source: U
Specimen Description:
Date Specimen was Collected: 02/03/25
Time Specimen was Collected: 23:13
Abnormal Lab Results
02/03/25 02/03/25
21:22 23:19
Hgb 11.0 L g/dL
(12.0-16.0)
Hct 33.9 L %
(37.0-47.0)
MCV 78.8 L fL
(81.0-99.0)
MCH 25.6 L pg
(27.0-31.0)
MCHC 32.4 L g/dL
(33.0-37.0)
RDW 15.4 H %
(11.5-14.5)
Creatinine 0.5 L mg/dL
(0.6-1.0)
Glucose 151 H mg/dl
(70-99)
Ur Occult Blood Reflex 4+ A
(Negative)
Leukocyte Esterase Rfl 1+ A
(Negative)
Urine Albumin (Reflex) 1+ A
(Neg - Trace)
02/03/25 21:22
02/03/25 21:22
Vital Signs
Initial and Last Documented VS:
Initial Vital Signs
Temp Pulse Resp BP Pulse Ox
98.1 F 97 19 152/94 100
02/03/25 21:11 02/03/25 21:11 02/03/25 21:11 02/03/25 21:11 02/03/25 21:11
Last Documented Vital Signs
Temp Pulse Resp BP Pulse Ox
98.1 F 98 18 146/68 100
02/03/25 21:11 02/03/25 22:55 02/03/25 22:55 02/03/25 22:55 02/03/25 23:22
MDM/Problems Addressed
Differential Diagnosis Includes:
Threatened , intrauterine , UTI
MDM/Problems Addressed:
Patient presents with acute vaginal spotting
Chronic conditions affecting care: DM
Acute Exacerbation and/or Progression of Chronic Illness:
Patient is acutely hyperglycemic but there is no sign of DKA
*Radiology
Radiology exam reviewed: radiology read reviewed
*Pulse Oximetry
SaO2: 100
Oxygen Mode of Delivery: Room air
Patient hypoxic: no
*EKG
Interpreted by ED Provider?: NA
*Retail Receiving Clerk Interpretation
Rate: Retail Receiving Clerk- N/A
*Critical Care Note
Total Time (30-74mins, 75-104mins- exclusive of procedures): Not Applicable
Data Reviewed
Review of Other/Old Records Reveals: Progress Notes (Infectious disease progress note reviewed from 2024 when patient had cellulitis due to cat bite)
Source: patient
Patient Management
Social determinants of health affecting care: Living situation and Strong social support
ED Attending Note
-
Portions of this chart may have been created with voice recognition software.� Occasional wrong word or��sound alike� substitutions may have occurred due to the inherent limitations of voice recognition software.
Discharge Plan
Departure
Prescriptions:
No Action
gabapentin 300 MG capsule
600 mg PO BID
metoprolol succinate 100 MG tablet extended release 24 hr
100 mg PO DAILY
tizanidine 4 mg Tablet
4 mg PO HS
tizanidine 4 mg Tablet
4 mg PO DAILYPRN PRN (Reason: spasms)
nortriptyline 25 mg Capsule
25 mg PO HS
ramipril 2.5 mg Capsule
2.5 mg PO HS
esomeprazole magnesium [Nexium] 20 mg Capsule,Delayed Release(Dr/Ec)
20 mg PO DAILY
sertraline 100 mg Tablet
100 mg PO HS
metformin 500 mg tablet
500 mg PO QPM
Lactobac/Bifidobac [Visbiome]
1 cap PO DAILY Qty: 0 0RF
amoxicillin-pot clavulanate 875-125 mg tablet
1 tab PO BID Qty: 20 0RF
multivitamin with iron Tablet
1 tab PO DAILY Qty: 30 5RF
Referrals:
Vignesh Yi DO [Family Provider, Family Practice]
Interventions
Interventions:
*Risk Screen - Suicide Last Done: 02/03/25 21:12
*General Assessment Last Done: 02/03/25 21:12
*Neglect/Abuse Screening Last Done: 02/03/25 21:12
*ED COVID-19 Vaccine History Last Done: 02/03/25 21:12
*ED Influenza Vaccine History Last Done: 02/03/25 21:12
[facility] Fall Risk Assessment Tool Last Done: 02/03/25 23:22
ED-Female Genitourinary Assessment Last Done: 02/03/25 23:09
Discharge Date and Time
Print Language: PORTUGUESE
[2025-02-03 23:25] LABS: Urine Character Clear (Clear)
[2025-02-04 01:42] LABS: Urine Squamous Cell >30 /LPF (Few)
[2025-02-04 01:46] LABS: Urine Red Blood Cell 0-2 /HPF (0-2)
[2025-02-04 01:56] VITALS: BP 140/72
== END 2025-02-04 01:59 | disposition home or self-care (01) ==
LOC: EMR 21:08
PROVIDERS: EMERGENCY PHYSICIAN Emergency Medicine; FAMILY PHYSICIAN Family Medicine
DX: O20.9 Hemorrhage in early pregnancy, unspecified (principal); O99.511 Diseases of the respiratory system complicating pregnancy, first trimester; J45.909 Unspecified asthma, uncomplicated; Z3A.01 Less than 8 weeks gestation of pregnancy
CPT/HCPCS: 99284; 76801; 76817; 80053; 81003; 81015; 84702; 85025; 86850; 86900; 86901; 87086